=== PATIENT | male | born 1980 | race Caucasian/White ===

== ENCOUNTER 2019-07-27 12:30 | Inpatient (IN) ==
[2019-07-27 13:11] LABS: Basophils % 0.4 % (0.0-0.8); Eosinophils # 0.2 10*3/uL (0.0-0.87); Eosinophils % 2.1 % (0.00-10.9); Hematocrit 40.4 VOL% (42.0-52.0); Immature Granulocytes % 0.3 %; Immature Granulocytes Absolute 0.02 #; Lymphocytes # 1.2 10*3/uL (1.4-4.0); Lymphocytes % 15.6 % (21.2-54.2); Mean Corpuscular HGB Conc 34.7 GM/DL (32-36); Mean Corpuscular Volume 85.4 FL (87-102); Mean Platelet Volume 10.4 FL (9.6-12.0); Monocytes % 11.6 % (1.7-12.7); Platelet Count 283 T/CUMM (130-400); Red Blood Count 4.73 MC/CUMM (3.8-5.5); Red Cell Distribution Width 16.3 % (9.3-17.3); White Blood Count 7.5 T/CUMM (4-12)
[2019-07-27 13:37] LABS: Bilirubin,Direct 8.05 MG/DL (0.0-0.20)
[2019-07-27 13:52] LABS: Albumin 3.4 G/DL (3.4-5.0); Apearance,Urine CLEAR (Clear); Bilirubin,Direct 7.99 MG/DL (0.0-0.20); Bilirubin,Indirect 1.7 MG/DL (0.0-1.0); Bilirubin,Total 9.7 MG/DL (0.2-1.0); Bilirubin,Urine Negative (Negative); Blood, Urine Negative (Negative); Calcium 8.9 MG/DL (8.5-10.1); Glucose,Urine (UA) Negative (Negative); Ketones,Urine Negative (Negative); Mucus,Urine Occasional /LPF (Occasional); Nitrite,Urine Negative (Negative); Osmolality,Calculated 277.4 MOS/KG (273-304); Protein,Urine Negative; RBC,Urine 1 /HPF (0-4); Squamous Epithelial Cell,Urine Occasional /HPF (0-10); Total Protein 7.3 G/DL (6.4-8.3); Urine Color Amber (Yellow); Urine Specific Gravity 1.006 (1.001-1.035)
[2019-07-27 15:19] LABS: Hepatitis B Core IgM Quant > 9.00 Index; Hepatitis B Surface Ag Quant > 1000.00 Index; Hepatitis B Surface Ag Result Positive (Negative); Hepatitis C Virus Ab Quant 0.09 Index; Hepatitis C Virus Ab Result Negative (Negative)
[2019-07-27] MEDS ORDERED: ONDANSETRON 4 MG/2 ML VIAL IV PRN (15:20)
[2019-07-27] MEDS ORDERED: LACTULOSE 20 GM/30 ML UDCUP PO PRN (15:20)
[2019-07-27 16:02] LABS: HDL Cholesterol < 10 MG/DL (40-60); Triglycerides 262 MG/DL (2-150); VLDL CHOLESTEROL 52.4 MG/DL
[2019-07-27] MEDS: SODIUM CHLORIDE 0.9% 1,000 ML IV SCH (16:37)
[2019-07-27] MEDS: ENOXAPARIN 40 MG/0.4 ML SYRINGE SUBCUT SCH (21:14)
[2019-07-27] MEDS: PROPRANOLOL 10 MG TABLET PO SCH (21:14)
[2019-07-27] MEDS: HydrOXYzine PAMOATE 50 MG CAPSULE PO SCH (21:14)
[2019-07-28 05:23] LABS: INR 1.1; PT Patient Result 12.2 SECS (9.6-12.2)
[2019-07-28 05:24] LABS: Basophils % 0.5 % (0.0-0.8); Eosinophils # 0.1 10*3/uL (0.0-0.87); Eosinophils % 1.9 % (0.00-10.9); Hematocrit 35.8 VOL% (42.0-52.0); Hemoglobin 12.7 GM/DL (14.0-18.0); Immature Granulocytes % 0.3 %; Immature Granulocytes Absolute 0.02 #; Lymphocytes # 1.5 10*3/uL (1.4-4.0); Lymphocytes % 24.8 % (21.2-54.2); Mean Corpuscular HGB Conc 35.5 GM/DL (32-36); Mean Corpuscular Volume 83.8 FL (87-102); Mean Platelet Volume 11.2 FL (9.6-12.0); Monocytes % 10.1 % (1.7-12.7); Neutrophils % 62.4 % (38.7-73.9); Platelet Count 253 T/CUMM (130-400); Red Blood Count 4.27 MC/CUMM (3.8-5.5); Red Cell Distribution Width 16.5 % (9.3-17.3); White Blood Count 6.2 T/CUMM (4-12)
[2019-07-28 05:52] LABS: Bilirubin,Direct 6.56 MG/DL (0.0-0.20); Bilirubin,Indirect 1.9 MG/DL (0.0-1.0); Bilirubin,Total 8.5 MG/DL (0.2-1.0); Total Protein 6.5 G/DL (6.4-8.3)
[2019-07-28 05:57] LABS: Albumin 2.9 G/DL (3.4-5.0); Bilirubin,Total 8.2 MG/DL (0.2-1.0); Calcium 8.7 MG/DL (8.5-10.1); Osmolality,Calculated 278.3 MOS/KG (273-304); Total Protein 6.5 G/DL (6.4-8.3)
[2019-07-28] MEDS: PROPRANOLOL 10 MG TABLET PO SCH ×2 (19:01→21:13)
[2019-07-28] MEDS: PANTOPRAZOLE 40 MG TABLET PO SCH (19:02)
[2019-07-28] MEDS: SODIUM CHLORIDE 0.9% 1,000 ML IV SCH (19:02)
[2019-07-28] MEDS: HydrOXYzine PAMOATE 25 MG CAPSULE PO SCH (19:03)
[2019-07-28] MEDS: HydrOXYzine PAMOATE 50 MG CAPSULE PO SCH (21:13)
[2019-07-28] MEDS: ENOXAPARIN 40 MG/0.4 ML SYRINGE SUBCUT SCH (21:13)
[2019-07-29 05:08] LABS: Basophils % 0.3 % (0.0-0.8); Eosinophils # 0.1 10*3/uL (0.0-0.87); Eosinophils % 1.8 % (0.00-10.9); Hematocrit 35.6 VOL% (42.0-52.0); Hemoglobin 12.4 GM/DL (14.0-18.0); Immature Granulocytes % 0.3 %; Immature Granulocytes Absolute 0.02 #; Lymphocytes # 1.6 10*3/uL (1.4-4.0); Lymphocytes % 25.9 % (21.2-54.2); Mean Corpuscular HGB Conc 34.8 GM/DL (32-36); Mean Platelet Volume 10.2 FL (9.6-12.0); Monocytes % 8.3 % (1.7-12.7); Neutrophils % 63.4 % (38.7-73.9); Platelet Count 234 T/CUMM (130-400); Red Blood Count 4.24 MC/CUMM (3.8-5.5); Red Cell Distribution Width 16.7 % (9.3-17.3)
[2019-07-29 07:42] LABS: Bilirubin,Total 10.3 MG/DL (0.2-1.0); Calcium 8.8 MG/DL (8.5-10.1); Osmolality,Calculated 275.7 MOS/KG (273-304); Total Protein 6.6 G/DL (6.4-8.3)
[2019-07-29] MEDS: PANTOPRAZOLE 40 MG TABLET PO SCH (09:20)
[2019-07-29] MEDS: PROPRANOLOL 10 MG TABLET PO SCH (09:20)
[2019-07-29] MEDS: HydrOXYzine PAMOATE 25 MG CAPSULE PO SCH (09:20)
[2019-07-29 12:05] VITALS: BP 111/74
== END 2019-07-29 15:10 | DRG 442 ==
LOC: EDBD → EDUNIT# → N.ED 12:30 → N.EDINP 15:20 → SUATTDRO 15:20 → N.3W 15:56
PROVIDERS: ADMIT Hospitalist; ATTEND Internal Medicine